=== PATIENT | male | born 1990 | race Hispanic/Latino ===

== ENCOUNTER 2022-04-13 12:03 | Emergency (ER) | payer SELFPAY ==
[2022-04-13] MEDS ORDERED: Ketorolac Tromethamine 30 MG/ML VIAL ONE (13:55)
== END 2022-04-13 14:30 | disposition home or self-care (01) ==
LOC: ERS 12:03
DX: M10.9 Gout, unspecified (principal)
CPT/HCPCS: 96372; J1885